=== PATIENT | male | born 1970 | race Caucasian/White ===

== ENCOUNTER 2018-06-12 19:33 | Emergency (ER) | payer OTHER ==
[~2018-06-12] VITALS: Ht 177.8 cm; Wt 90.7 kg
[2018-06-12 20:03] LABS: ABSOLUTE BASOPHILS 0.1 thou/uL (0.0-0.2); ABSOLUTE EOSINOPHILS 0.1 thou/uL (0.0-0.7); ABSOLUTE LYMPHOCYTES 2.1 thou/uL (0.8-5.3); ABSOLUTE MONOCYTES 0.5 thou/uL (0.0-1.2); BASOPHILS 0.9 %; EOSINOPHILS 1.1 %; HEMATOCRIT 43.6 % (42.0-52.0); HEMOGLOBIN 15.2 gm/dL (14.0-18.0); LYMPHOCYTES 36.1 %; MCH 34.4 pg (26.0-34.0); MCHC 34.8 g/dL (28.0-37.0); MONOCYTES 9.4 %; MPV 6.9 fl. (7.2-11.1); NUCLEATED RBCS 0 /100WBC; PLATELET COUNT* 327 thou/uL (150-400); POLYS 52.5 %; RBC 4.41 mil/uL (4.50-6.00); RDW-CV 13.1 % (10.5-14.5); WBC 5.7 thou/uL (4.0-11.0)
[2018-06-12 20:05] LABS: URINE BILIRUBIN NEGATIVE (Negative); URINE BLOOD TRACE (Negative); URINE CLARITY CLEAR; URINE COLOR YELLOW; URINE GLUCOSE-RANDOM NEGATIVE (Negative); URINE KETONES NEGATIVE (Negative); URINE LEUKOCYTES-REFLEX NEGATIVE (Negative); URINE NITRITE-REFLEX NEGATIVE (Negative); URINE PROTEIN TRACE (Negative); URINE SPECIFIC GRAVITY <= 1.005 (1.005-1.030); URINE UROBILINOGEN 0.2 E.U./dl (0.2-1.0)
[2018-06-12 20:12] LABS: ANION GAP 9 mmol/L (7-16); BUN 13 mg/dL (7-18); CALCIUM 8.7 mg/dL (8.5-10.1); CHLORIDE 102 mmol/L (98-107); CO2 28 mmol/L (21-32); CREATININE 0.9 mg/dL (0.6-1.3); GLUCOSE 125 mg/dL (70-99); POTASSIUM 3.5 mmol/L (3.5-5.1); SODIUM 139 mmol/L (136-145)
[2018-06-12 20:14] LABS: PROTIME 9.4 Seconds (9.20-11.50)
[2018-06-12 20:16] LABS: AMP/METHAMP Negative (Negative); BARBITURATES Negative (Negative); BENZODIAZEPINES Negative (Negative); COCAINE Negative (Negative); METHADONE Negative (Negative); OPIATES Negative (Negative); PCP Negative (Negative); THC Negative (Negative)
[2018-06-12 20:23] LABS: ALBUMIN 3.7 g/dL (3.4-5.0); ALKALINE PHOSPHATASE 53 U/L (46-116); LIPASE 171 U/L (73-393); NT-PRO BRAIN NAT PEPTIDE < 5 pg/mL (<300); SGOT 48 U/L (15-37); SGPT 49 U/L (30-65); TOTAL BILIRUBIN 0.2 mg/dL (<0.1-1.0); TOTAL PROTEIN 7.8 g/dL (6.4-8.2); TROPONIN-I LEVEL <0.06 ng/mL (<0.06)
[2018-06-12] MEDS ORDERED: CARAFATE 1 GM TA1 GM PO (22:04)
[2018-06-12] MEDS ORDERED: PROTONIX40 MG PO (22:04)
[2018-06-12] MEDS ORDERED: HYDROXYZINE HCL25 M1 PO (22:11)
[2018-06-12 22:15] VITALS: BP 141/93
--- NOTE | 2018-06-13 12:40 | EKG ---
[place] [address] ELECTROCARDIOGRAM REPORT Name: WENDY VAUGHAN Room: [facility]#: [id number] Admission: 06/12/18 Attend Phys: Discharge: 06/12/18 Date of : 68 Report #: [id number] THIS REPORT FOR: //name// [facility] ED Test Date: 2018-06-12 Test Time: 19:47:50 Pat Name: WENDY VAUGHAN Department: Room: Gender: M Nodulizer: [facility] : 1970 Requested By: Kathleen Gay Order Number: [id number] MD: Bahman Pena Measurements Intervals Clements Rate: 104 P: 44 OR: 158 QRS: 22 QRSD: 73 T: 12 QT: 346 QTc: 455 Interpretive Statements Sinus tachycardia Abnormal R-wave progression, early transition No previous ECG available for comparison Electronically Signed On 06-13-2018 12:40:18 CDT by Bahman Pena [email or web address] <ELECTRONICALLY SIGNED> By: Bahman Pena MD, [facility] 06/13/18 1240 1947 46 Bahman Pena MD, FACC /EPI
== END 2018-06-12 22:15 | disposition home or self-care (01) ==
LOC: M.ERS 19:33
PROVIDERS: Emergency Medicine
DX: F10.129 Alcohol abuse with intoxication, unspecified (principal); Y90.8 Blood alcohol level of 240 mg/100 ml or more; R41.82 Altered mental status, unspecified; R10.13 Epigastric pain; R10.32 Left lower quadrant pain